=== PATIENT | male | born 1975 | race Caucasian/White ===

== ENCOUNTER 2018-09-14 06:31 | Emergency (ER) | payer SELFPAY ==
[2018-09-14] MEDS ORDERED: ASPIRIN 81 MG TABLET, CHEWABLE PO ONE (06:43)
[2018-09-14] MEDS ORDERED: FAMOTIDINE INJ/PF 20 MG/2 ML SDV IV ONE (07:09)
[2018-09-14] MEDS ORDERED: NORMAL SALINE 1000 ML 1,000 ML IV ONE (07:09)
[2018-09-14] MEDS ORDERED: KETOROLAC TROMETHAMINE INJ/PF 30 MG/1 ML SDV IV ONE (07:09)
[2018-09-14 07:17] LABS: ABSOLUTE LYMPHOCYTES (AUTO) 1.1 10^3/uL (0.5-4.7); ABSOLUTE MONOCYTES (AUTO) 0.3 10^3/uL (0.1-1.4); ABSOLUTE NEUT (AUTO) 4.3 10^3/uL (1.7-8.2); BASOPHILS % (AUTO) 0.5 % (0-2); EOSINOPHILS % (AUTO) 0.2 % (0-6); HEMATOCRIT 42.1 % (37.9-51.0); HEMOGLOBIN 15.1 g/dL (13.5-17.0); LYMPHOCYTES % (AUTO) 18.6 % (13-45); MEAN CORPUSCULAR HEMOGLOBIN 33.8 pg (27.0-33.4); MEAN CORPUSCULAR HGB CONC 35.9 g/dL (32.0-36.0); MEAN CORPUSCULAR VOLUME 94 fl (80-97); MONOCYTES % (AUTO) 5.8 % (3-13); PLATELET COUNT 175 10^3/uL (150-450); RED BLOOD COUNT 4.46 10^6/uL (4.35-5.55); RED CELL DISTRIBUTION WIDTH 13.3 % (11.5-14.0); SEGMENTED NEUTROPHILS % (AUTO) 74.9 % (42-78); TOTAL CELLS COUNTED % (AUTO) 100 %; WHITE BLOOD COUNT 5.8 10^3/uL (4.0-10.5)
--- NOTE | 2018-09-14 07:22 | RADIOLOGY REPORT (SQ) ---
EXAM DESCRIPTION: XR CHEST 1 VIEW COMPLETED DATE/TME: 09/14/2018 06:43 CLINICAL HISTORY: 43 years Male, cp COMPARISON: None. NUMBER OF VIEWS/TECHNIQUE: 1/AP FINDINGS: Increased lung volume, clear parenchyma, normal cardiac silhouette, and intact bony thorax. IMPRESSION: No acute cardiopulmonary findings.
[2018-09-14 07:32] LABS: ALANINE AMINOTRANSFERASE 66 U/L (21-72); ALBUMIN 4.4 g/dL (3.5-5.0); ALKALINE PHOSPHATASE 86 U/L (38-126); ANION GAP 12 (5-19); ASPARTATE AMINO TRANSFERASE 150 U/L (17-59); BILIRUBIN,DIRECT 0.3 mg/dL (0.0-0.4); BILIRUBIN,TOTAL 0.9 mg/dL (0.2-1.3); BLOOD UREA NITROGEN 17 mg/dL (7-20); CALCIUM 10.7 mg/dL (8.4-10.2); CARBON DIOXIDE 26 mmol/L (22-30); CHLORIDE 102 mmol/L (98-107); CREATINE KINASE 79 U/L (55-170); GLUCOSE 109 mg/dL (75-110); POTASSIUM 3.7 mmol/L (3.6-5.0); SODIUM 140.1 mmol/L (137-145); TOTAL PROTEIN 7.6 g/dL (6.3-8.2)
--- NOTE | 2018-09-14 07:39 | ER Document Report ---
Entered by RAFFAELE SEGOVIA SCRIBE 09/14/18 0722 Acting as scribe for:JHONY DOWNEY MD ED General - General Chief Complaint: Chest Pain Stated Complaint: CHEST PAIN Time Seen by Provider: 09/14/18 06:55 Mode of Arrival: Ambulatory Information source: Patient Notes: Patient is a 43 year old male with HTN presents to the emergency department complaining of chest pain, right arm pain and vomiting onset this morning. Patient states he woke up around 0530 this morning with chest pain described as a sharpness across his entire chest. Patient states he proceeded to get out of bed and felt very off balance and "out of it". He states he laid down and proceeded to have right arm pain. He states he then began to have hot flashes and dizziness and stepped outside where he proceeded to vomit. Patient states he currently feels "loopy" and describes his current chest pain as a right sided "tremor". He denies a history of similar symptoms or any current nausea. Patient is currently prescribed HCTZ, metoprolol 50 mg daily. He states he is prescribed lisinopril but has discontinued used due to not liking the way it makes him feel. TRAVEL OUTSIDE OF THE [place] IN LAST 30 DAYS: No - Related Data Allergies/Adverse Reactions: No Known Allergies Allergy (Unverified 12/10/17 07:09) Past Medical History - General Information source: Patient - Social History Smoking Status: Current Every Day Smoker Cigarette use (# per day): Yes - 1 PPD Chew tobacco use (# tins/day): No Smoking Education Provided: No Frequency of alcohol use: Heavy - reports "1 glass a day" Drug Abuse: None Occupation: [employer] Home Lives with: Family Family History: Other - Mother, multiple myeloma Patient has suicidal ideation: No Patient has homicidal ideation: No - Past Medical History Cardiac Medical History: Reports: Hx Hypertension Review of Systems - Review of Systems Constitutional: No symptoms reported EENT: No symptoms reported Cardiovascular: See HPI, Dizziness Respiratory: No symptoms reported Gastrointestinal: See HPI, Nausea, Vomiting Genitourinary: No symptoms reported Male Genitourinary: No symptoms reported Musculoskeletal: See HPI Skin: No symptoms reported Hematologic/Lymphatic: No symptoms reported Neurological/Psychological: No symptoms reported -: Yes All other systems reviewed and negative Physical Exam - Vital signs Vitals: Temp Pulse Resp BP Pulse Ox 98.7 F 104 H 16 151/99 H 95 09/14/18 06:37 09/14/18 06:37 09/14/18 06:37 09/14/18 06:37 09/14/18 06:37 - Notes Notes: GENERAL: Alert, interacts well. No acute distress. HEAD: Normocephalic, atraumatic. No facial asymmetry. EYES: Pupils equal, round, and reactive to light. Extraocular movements intact. ENT: Oral mucosa moist, tongue midline. NECK: Full range of motion. Supple. Trachea midline. LUNGS: Clear to auscultation bilaterally, no wheezes, rales, or rhonchi. No respiratory distress. Bilateral anterior chest wall tenderness to palpation, R>L. HEART: Regular tachycardic with a rate of 105 with occasional PACs with a pause on bedside rn cardiac per my interpretation. ABDOMEN: Soft, non-tender. Non-distended. Bowel sounds present in all 4 quadrants. No guarding, rigidity, or rebound. EXTREMITIES: Moves all 4 extremities spontaneously. No edema, radial and dorsalis pedis pulses 2/4 bilaterally. No cyanosis. Bilateral trapezius and shoulder tenderness to palpation, R>L. NEUROLOGICAL: Alert and oriented x3. Normal speech. Normal motor functions. Normal sensations. PSYCH: Normal affect, normal mood. SKIN: Warm, dry, normal turgor. No rashes or lesions noted. Course - Vital Signs Vital signs: Temp Pulse Resp BP Pulse Ox 98.7 F 104 H 21 H 141/93 H 93 09/14/18 06:37 09/14/18 06:37 09/14/18 08:01 09/14/18 08:01 09/14/18 08:01 - Laboratory Result Diagrams: 09/14/18 06:52 09/14/18 06:52 Laboratory results interpreted by me: 09/14/18 09/14/18 06:52 06:52 MCH 33.8 H Calcium 10.7 H AST 150 H - Diagnostic Test Radiology reviewed: Image reviewed, Reports reviewed - Chest x-ray shows increased lung volume, nothing acute. - EKG Interpretation by Mi EKG shows normal: Sinus rhythm, [place], Intervals, QRS Complexes, ST-T Waves Rate: Tachycardia - 100 Rhythm: APC's When compared to previous EKG there are: Previous EKG unavailable Discharge - Discharge Clinical Impression: Anterior chest wall pain Condition: Stable Disposition: HOME, SELF-CARE Additional Instructions: Chest Wall Pain Your chest pain has been diagnosed as coming from the chest wall. This is often caused by straining the muscles or joints in the chest during physical activity, direct trauma, coughing, or vigorous vomiting. Persons with arthritis are especially prone to this type of pain, due to inflammation of the cartilage joints near the breast bone. Occasionally, no cause can be found. Rest from strenuous physical activity. This kind of chest pain is usually made worse by movement of the chest. If the pain is new, and seems to be due to muscle strain, cold packs can help. Otherwise, apply gentle warmth to the painful area for 15 minutes every hour or two. You should contact the doctor immediately if things change. Further evaluation is needed if you develop a fever or cough, if the nature of the pain changes, or if you become short of breath. Take Tylenol with ibuprofen or Aleve for your chest wall discomfort. Try to rest the involved muscles as much as possible. Follow-up with a local primary care provider if not improving. RETURN TO THE EMERGENCY ROOM IF ANY NEW OR WORSENING SYMPTOMS. Forms: Return to Work Scribe Attestation: 09/14/18 07:40 I personally performed the services described in the documentation, reviewed and edited the documentation which was dictated to the scribe in my presence, and it accurately records my words and actions. I personally performed the services described in the documentation, reviewed and edited the documentation which was dictated to the scribe in my presence, and it accurately records my words and actions.
[2018-09-14 07:45] LABS: CREATINE KINASE MB 0.54 ng/mL (<4.55); TROPONIN I < 0.012 ng/mL
--- NOTE | 2018-09-14 08:17 | EKG REPORT ---
SEVERITY:- OTHERWISE NORMAL ECG - SINUS TACHYCARDIA ATRIAL PREMATURE COMPLEX : Confirmed by: Boston Guajardo MD 14-Sep-2018 08:16:48
[2018-09-14 09:31] VITALS: BP 155/102
== END 2018-09-14 09:30 | disposition home or self-care (01) ==
LOC: ER 06:31
DX: R07.89 Other chest pain (principal); R11.10 Vomiting, unspecified; M79.601 Pain in right arm; F17.210 Nicotine dependence, cigarettes, uncomplicated
CPT/HCPCS: 93005; 99285; 96361; 96374; 36415; 82553; 82550; 85025; 80053; 84484; 71045; 93010; J7030; S0028

== ENCOUNTER 2019-05-24 14:00 | Emergency (ER) | payer OTHER ==
[2019-05-24] MEDS ORDERED: DIPH/PERTUSS(ACELL)/TETANUS VAC/PF 0.5 ML SYR (>=10YO) IM ONE (14:11)
--- NOTE | 2019-05-24 14:15 | ER Document Report ---
ED Medical Screen (RME) - General Chief Complaint: Head Injury Stated Complaint: HEAD INJURY Time Seen by Provider: 05/24/19 14:06 TRAVEL OUTSIDE OF THE [place] IN LAST 30 DAYS: No - HPI Notes: 05/24/19 14:12 Patient is a 44-year-old male who presents complaining of having a moderate to severe headache for the past 3 days with only being able to sleep for 6 hours total throughout this time as well as feeling off balance status post head injury 3 days ago at work. Patient states that he remembers talking on the phone within the work place building and then all of a sudden regaining consciousness with him slamming on the gas pedal while sitting in his truck and being aided by coworkers. Patient states that there was blood running down his head because he hit it open on something. He does not recall any injury, but states that he must of hit his head off of something. Patient did not get evaluated by medical facility at that time. Unknown last tetanus. He otherwise has been able to eat and drink since then, but does have decreased p.o. intake. He is urinating normally and having normal bowel movements. He is able to ambulate. He is not on any blood thinning medications. No CP/SOB or abd pain. I have treated and performed a rapid initial assessment of this patient. A comprehensive ED assessment and evaluation of the patient, analysis of test results and completion of medical decision making process will be conducted by additional ED providers. PHYSICAL EXAMINATION: accompanied by female nurse GENERAL: Well-appearing, well-nourished and in no acute distress. A&Ox4. Answ ers questions appropriately. HEAD: There is a linear healing laceration approx 3.5cm to the rt parietal area. No borden sign EYES: Pupils equal round and reactive to light, extraocular movements intact, sclera anicteric, conjunctiva are normal. No raccoon eyes/entrapment ENT: EAC clear b/l. TM's intact b/l without erythema, fluid, or perforation. Nares patent and without discharge. oropharynx clear without exudates. No tonsilar hypertrophy or erythema. Moist mucous membranes. No sinus tenderness. No hemotympanum/CSF discharge. NECK: Normal range of motion, supple without lymphadenopathy. No rigidity. No midline tenderness. LUNGS: Breath sounds clear to auscultation bilaterally and equal. No wheezes rales or rhonchi. HEART: Regular rate and rhythm without murmurs, rubs, gallops. Musculoskeletal: Ext b/l: FROM to passive/active. Strength 5+/5. No deficits noted. No bony tenderness of extremities. Back: FROM to passive/active. Strength 5+/5. No vertebral point tenderness, stepoffs, or deformities. No other bony tenderness or ecchymosis. SLR negative b/l. Extremities: No cyanosis, clubbing, or edema b/l. Peripheral pulses 2+. Capillary refill less than 2 seconds. NEUROLOGICAL: NIH 0. GCS 15. Cranial nerves grossly intact. Normal speech, normal gait. Normal sensory, motor exams. Reflexes 2+ b/l. PSYCH: Normal mood, normal affect. SKIN: Warm, Dry, normal turgor, no rashes or lesions noted. - Related Data Allergies/Adverse Reactions: narcotics Adverse Reaction (Uncoded 05/24/19 14:07) Past Medical History - Past Medical History Cardiac Medical History: Reports: Hx Hypertension Renal/ Medical History: Denies: Hx Peritoneal Dialysis Physical Exam - Vital signs Vitals: Temp Pulse Resp BP Pulse Ox 99.7 F 98 18 143/84 H 100 05/24/19 14:05 05/24/19 14:05 05/24/19 14:05 05/24/19 14:05 05/24/19 14:05 Course - Vital Signs Vital signs: Temp Pulse Resp BP Pulse Ox 99.7 F 98 18 143/84 H 100 05/24/19 14:05 05/24/19 14:05 05/24/19 14:05 05/24/19 14:05 05/24/19 14:05
--- NOTE | 2019-05-24 14:42 | RADIOLOGY REPORT (SQ) ---
EXAM DESCRIPTION: CT HEAD WITHOUT COMPLETED DATE/TIME: 05/24/2019 2:32 pm REASON FOR STUDY: LOC, rt head injury COMPARISON: None. TECHNIQUE: Axial images acquired through the brain without intravenous contrast. Images reviewed wi th bone, brain and subdural windows. Additional sagittal and coronal reconstructions were generated. Images stored on PACS. All CT scanners at this facility use dose modulation, iterative reconstruction, and/or weight based d osing when appropriate to reduce radiation dose to as low as reasonably achievable (ALARA). [facility]: Dose Right [facility]: CareDose [facility]: Dose Right [facility]: Teradose 4D [facility]: [email or web address] RADIATION DOSE: CT Rad equipment meets quality standard of care and radiation dose reduction techniq ues were employed. CTDIvol: 53.2 mGy. DLP: 1070 mGy-cm. mGy. LIMITATIONS: None. FINDINGS: VENTRICLES: Normal size and contour. CEREBRUM: No masses. No hemorrhage. No midline shift. No evidence for acute infarction. Normal gra y/white matter differentiation. No areas of low density in the white matter. CEREBELLUM: No masses. No hemorrhage. No alteration of density. No evidence for acute infarction. EXTRAAXIAL SPACES: No fluid collections. No masses. ORBITS AND GLOBE: No intra- or extraconal masses. Normal contour of globe without masses. CALVARIUM: No fracture. PARANASAL SINUSES: No fluid or mucosal thickening. SOFT TISSUES: No mass or hematoma. OTHER: No other significant finding. IMPRESSION: NORMAL BRAIN CT WITHOUT CONTRAST. EVIDENCE OF ACUTE STROKE: NO. COMMENT: Quality ID # [id number]: Final reports with documentation of one or more dose reduction techniques (e.g., Automated exposure control, adjustment of the mA and/or kV according to patient size, use of iterative reconstruction technique) TECHNICAL DOCUMENTATION: JOB ID: [id number] 2010 [employer]- All Rights Reserved Reading location - IP/workstation name: [email or web address]
[2019-05-24 15:05] LABS: ABSOLUTE LYMPHOCYTES (AUTO) 0.7 10^3/uL (0.5-4.7); ABSOLUTE MONOCYTES (AUTO) 0.5 10^3/uL (0.1-1.4); TOTAL CELLS COUNTED % (AUTO) 100 %; WHITE BLOOD COUNT 4.2 10^3/uL (4.0-10.5)
[2019-05-24 15:08] LABS: APPEARANCE,URINE CLEAR; BILIRUBIN,URINE NEGATIVE (NEGATIVE); COLOR,URINE YELLOW; GLUCOSE, URINE NEGATIVE (NEGATIVE); KETONES,URINE NEGATIVE (NEGATIVE); PROTEIN,URINE NEGATIVE (NEGATIVE); URINE SPECIFIC GRAVITY 1.019
[2019-05-24 15:14] LABS: INTERNATIONAL RATION (INR) 0.92; PROTHROMBIN TIME 12.3 SEC (11.4-15.4)
[2019-05-24 15:15] LABS: PARTIAL THROMBOPLASTIN TIME 29.1 SEC (23.5-35.8)
[2019-05-24 15:20] LABS: BASOPHILS % (AUTO) 0.3 % (0-2); EOSINOPHILS % (AUTO) 0.6 % (0-6); HEMATOCRIT 40.4 % (37.9-51.0); HEMOGLOBIN 14.3 g/dL (13.5-17.0); LYMPHOCYTES % (AUTO) 16.3 % (13-45); MEAN CORPUSCULAR HEMOGLOBIN 34.3 pg (27.0-33.4); MEAN CORPUSCULAR HGB CONC 35.4 g/dL (32.0-36.0); MEAN CORPUSCULAR VOLUME 97 fl (80-97); MONOCYTES % (AUTO) 11.1 % (3-13); PLATELET COUNT 113 10^3/uL (150-450); RED BLOOD COUNT 4.17 10^6/uL (4.35-5.55); RED CELL DISTRIBUTION WIDTH 14.5 % (11.5-14.0); SEGMENTED NEUTROPHILS % (AUTO) 71.7 % (42-78)
[2019-05-24 15:20] LABS: URINE AMPHETAMINES SCREEN NEGATIVE; URINE BARBITURATES SCREEN NEGATIVE; URINE BENZODIAZEPINES SCREEN NEGATIVE; URINE COCAINE SCREEN NEGATIVE; URINE MARIJUANA (THC) SCREEN NEGATIVE; URINE METHADONE SCREEN NEGATIVE; URINE PHENCYCLIDINE SCREEN NEGATIVE
[2019-05-24 15:25] LABS: ALBUMIN 4.1 g/dL (3.5-5.0); ALKALINE PHOSPHATASE 52 U/L (38-126); ANION GAP 8 (5-19); ASPARTATE AMINO TRANSFERASE 77 U/L (17-59); BILIRUBIN,TOTAL 0.6 mg/dL (0.2-1.3); BLOOD UREA NITROGEN 9 mg/dL (7-20); CALCIUM 9.6 mg/dL (8.4-10.2); CARBON DIOXIDE 30 mmol/L (22-30); CHLORIDE 101 mmol/L (98-107); GLUCOSE 88 mg/dL (75-110); POTASSIUM 3.6 mmol/L (3.6-5.0); TOTAL PROTEIN 6.9 g/dL (6.3-8.2)
[2019-05-24] MEDS ORDERED: LORAZEPAM INJ 2 MG/1 ML VIAL IV ONE (16:34)
--- NOTE | 2019-05-24 16:37 | RADIOLOGY REPORT (SQ) ---
EXAM DESCRIPTION: CT CERVICAL SPINE WITHOUT COMPLETED DATE/TIME: 05/24/2019 4:15 pm REASON FOR STUDY: trauma COMPARISON: None. TECHNIQUE: Axial images acquired through the cervical spine without intravenous contrast. Images re viewed with lung, soft tissue and bone windows. Reconstructed coronal and sagittal MPR images review ed. Images stored on PACS. All CT scanners at this facility use dose modulation, iterative reconstruction, and/or weight based d osing when appropriate to reduce radiation dose to as low as reasonably achievable (ALARA). [facility]: Dose Right [facility]: CareDose [facility]: Dose Right [facility]: Teradose 4D [facility]: [employer] RADIATION DOSE: CT Rad equipment meets quality standard of care and radiation dose reduction techniq ues were employed. CTDIvol: 16.3 mGy. DLP: 354 mGy-cm. mGy. LIMITATIONS: Motion artifact. FINDINGS: ALIGNMENT: Anatomic. MINERALIZATION: Normal. VERTEBRAL BODIES: No fractures or dislocation. DISCS: Multilevel disc space narrowing with osteophytes. FACETS, LATERAL MASSES, POSTERIOR ELEMENTS: Facet arthropathy. No fractures. No dislocation. No ac lower brule findings. HARDWARE: None in the spine. VISUALIZED RIBS: No fractures. LUNG APICES AND SOFT TISSUES: No significant or acute findings. OTHER: No other significant finding. IMPRESSION: CHRONIC DEGENERATIVE CHANGES. NO ACUTE FINDINGS. TECHNICAL DOCUMENTATION: JOB ID: [id number] Quality ID # [id number]: Final reports with documentation of one or more dose reduction techniques (e.g., Au tomated exposure control, adjustment of the mA and/or kV according to patient size, use of iterative reconstruction technique) 2010 [employer]- All Rights Reserved Reading location - IP/workstation name: [email or web address]
--- NOTE | 2019-05-24 17:58 | ER Document Report ---
Entered by KATIE WHITT SCRIBE 05/24/19 1532 Acting as scribe for:LIZA GONZALEZ DO ED Head/Face/Scalp Injury - General Chief Complaint: Head Injury Stated Complaint: HEAD INJURY Time Seen by Provider: 05/24/19 14:06 Information source: Patient Notes: This 44-year-old male patient presents to the emergency department today with complaints of a presumed fall that occurred x3 days ago. Patient states that he remembers leaving work and the next thing he remembers is being woken up asleep in his truck. Patient states the truck was running and he had a large amount of blood coming from his head. Patient states he assumes he fell but again he does not remember a fall and it was not witnessed by anyone. Patient states he has had continued dizziness, nausea, and a headache since the fall. Patient has not been seen since the fall. TRAVEL OUTSIDE OF THE [place] IN LAST 30 DAYS: No - Related Data Allergies/Adverse Reactions: narcotics Adverse Reaction (Uncoded 05/24/19 14:07) Past Medical History - General Information source: Patient - Social History Smoking Status: Current Every Day Smoker Cigarette use (# per day): Yes Chew tobacco use (# tins/day): No Frequency of alcohol use: None Drug Abuse: None Occupation: [employer] Family History: Reviewed & Not Pertinent, Other - Mother, multiple myeloma Patient has suicidal ideation: No Patient has homicidal ideation: No - Past Medical History Cardiac Medical History: Reports: Hx Hypertension Renal/ Medical History: Denies: Hx Peritoneal Dialysis Review of Systems - Review of Systems Constitutional: See HPI, Other - fall EENT: No symptoms reported Cardiovascular: See HPI, Dizziness Respiratory: No symptoms reported Gastrointestinal: See HPI, Nausea. denies: Vomiting Genitourinary: No symptoms reported Male Genitourinary: No symptoms reported Musculoskeletal: No symptoms reported Skin: No symptoms reported Hematologic/Lymphatic: No symptoms reported Neurological/Psychological: See HPI, Headaches -: Yes All other systems reviewed and negative Physical Exam - Vital signs Vitals: Temp Pulse Resp BP Pulse Ox 99.7 F 98 18 143/84 H 100 05/24/19 14:05 05/24/19 14:05 05/24/19 14:05 05/24/19 14:05 05/24/19 14:05 - Notes Notes: Physical Exam: General: Alert, appears well. HEENT: Normocephalic. PERRL. Extraocular movements intact. Oropharynx clear. 3 inch healing laceration over the right parietal area without sign of infection. No active bleeding. Neck: Supple. Non-tender. Respiratory: No respiratory distress. Clear and equal breath sounds bilaterally. Cardiovascular: Regular rate and rhythm. Abdominal: Normal Inspection. Non-tender. No distension. Normal Bowel Sounds. Back: No gross abnormalities. Extremities: Moves all four extremities. Upper extremities: Normal inspection. Normal ROM. Lower extremities: Normal inspection. No edema. Normal ROM. Neurological: Normal cognition. AAOx4. Normal speech. Psychological: Normal affect. Normal Mood. Skin: Warm. Dry. Normal color. Course - Re-evaluation Re-evalutation: 05/24/19 18:00 MDM 44 year old with complaints of headache and amnesia to events of the other day - Sunday 05/21 - when he apparently fell and ended up with a right sided scalp laceration. He has been dizzy since and had some headaches and nausea. Persistent headaches and nausea have led him to want to be evaluated here today. 05/24/19 18:04 I have discussed with Dr. Hooper at [facility] and he has graciously accepted the pt as a trauma transfer. We are awaiting transfer. The pt is stable in normal at this time. 05/24/19 20:05 Pt seen at this time as transport is here and assessing him and he is stable for transport. - Vital Signs Vital signs: Temp Pulse Resp BP Pulse Ox 99.7 F 98 20 148/98 H 98 05/24/19 14:05 05/24/19 14:05 05/24/19 19:01 05/24/19 19:00 05/24/19 19:01 - Laboratory Result Diagrams: 05/24/19 14:35 05/24/19 14:35 Laboratory results interpreted by me: 05/24/19 05/24/19 05/24/19 14:30 14:35 14:35 RBC 4.17 L MCH 34.3 H RDW 14.5 H Plt Count 113 L AST 77 H Urine Blood SMALL H Urine Urobilinogen 2.0 H Acetaminophen 05/24/19 14:35 RBC MCH RDW Plt Count AST Urine Blood Urine Urobilinogen Acetaminophen < 10 L - Diagnostic Test Radiology reviewed: Image reviewed, Reports reviewed - EKG Interpretation by Me EKG shows normal: Sinus rhythm Rate: Normal Rhythm: NSR - NSR Nl [place] [address] eleavtion or depression my interpretation. Critical Care Note - Critical Care Note Total time excluding time spent on procedures (mins): 30 Discharge - Discharge Clinical Impression: SDH (subdural hematoma) Scalp laceration Qualifiers: Encounter type: initial encounter Qualified Code(s): S01.01XA - Laceration without foreign body of scalp, initial encounter Condition: Fair Disposition: [facility] I personally performed the services described in the documentation, reviewed and edited the documentation which was dictated to the scribe in my presence, and it accurately records my words and actions.
[2019-05-24 20:20] VITALS: BP 157/102
--- NOTE | 2019-05-24 21:21 | EKG REPORT ---
SEVERITY:- NORMAL ECG - SINUS RHYTHM : Confirmed by: Sherry Metcalf 24-May-2019 21:20:19
== END 2019-05-24 20:20 | disposition short-term general hospital (02) ==
LOC: ER 14:00
DX: S06.5X0A Traumatic subdural hemorrhage without loss of consciousness, initial encounter (principal); S01.01XA Laceration without foreign body of scalp, initial encounter; R42 Dizziness and giddiness; R11.0 Nausea; R51 Headache; X58.XXXA Exposure to other specified factors, initial encounter; Z88.8 Allergy status to other drugs, medicaments and biological substances; F17.210 Nicotine dependence, cigarettes, uncomplicated; I10 Essential (primary) hypertension
CPT/HCPCS: 93005; 99291; 90471; 96374; 36415; 80307 ×2; 85025; 85610; 85730; 80053; 81001; 70450; 72125; 90715; 93010; J2060

== ENCOUNTER 2019-05-27 14:45 | Emergency (ER) | payer SELFPAY ==
[2019-05-27 15:09] VITALS: BP 142/86
--- NOTE | 2019-05-27 15:30 | ER Document Report ---
ED Medical Screen (RME) - General Chief Complaint: Head Injury Stated Complaint: HEAD PAIN,NAUSEA Time Seen by Provider: 05/27/19 15:23 Mode of Arrival: Ambulatory Information source: Patient Notes: Patient states that he was seen in the emergency department 3 days ago and diagnosed with a skull fracture and was transferred to [facility]. Patient states that his headache started to worsen yesterday which prompted his visit here today. Patient states that his ears feel like they are popping and he has nausea. Patient reports feeling lightheaded and dizzy. I have greeted and performed a rapid initial assessment of this patient. A comprehensive ED assessment and evaluation of the patient, analysis of test results and completion of the medical decision making process will be conducted by additional ED providers. TRAVEL OUTSIDE OF THE [place] IN LAST 30 DAYS: No - Related Data Allergies/Adverse Reactions: narcotics Adverse Reaction (Uncoded 05/24/19 14:07) Past Medical History - Past Medical History Cardiac Medical History: Reports: Hx Hypertension Renal/ Medical History: Denies: Hx Peritoneal Dialysis Physical Exam - Vital signs Vitals: Temp Pulse Resp BP Pulse Ox 98.8 F 75 18 142/86 H 98 05/27/19 15:07 05/27/19 15:07 05/27/19 15:07 05/27/19 15:07 05/27/19 15:07 - Neurological Neuro grossly intact: Yes Cognition: Normal Paresh Coma Scale Eye Opening: Spontaneous [place] Coma Scale Verbal: Oriented [place] Coma Scale Motor: Obeys Commands [place]le Coma Scale Total: 15 Course - Vital Signs Vital signs: Temp Pulse Resp BP Pulse Ox 98.8 F 75 18 142/86 H 98 05/27/19 15:07 05/27/19 15:07 05/27/19 15:07 05/27/19 15:07 05/27/19 15:07
--- NOTE | 2019-05-27 16:06 | RADIOLOGY REPORT (SQ) ---
EXAM DESCRIPTION: CT HEAD WITHOUT COMPLETED DATE/TIME: 05/27/2019 3:50 pm REASON FOR STUDY: CM, hx fracture COMPARISON: 05/24/2019 TECHNIQUE: Axial images acquired through the brain without intravenous contrast. Images reviewed wi th bone, brain and subdural windows. Additional sagittal and coronal reconstructions were generated. Images stored on PACS. All CT scanners at this facility use dose modulation, iterative reconstruction, and/or weight based d osing when appropriate to reduce radiation dose to as low as reasonably achievable (ALARA). [facility]: Dose Right [facility]: CareDose [facility]: Dose Right [facility]: Teradose 4D [facility]: [employer] RADIATION DOSE: CT Rad equipment meets quality standard of care and radiation dose reduction techniq ues were employed. CTDIvol: 53.2 mGy. DLP: 991 mGy-cm. mGy. LIMITATIONS: None. FINDINGS: VENTRICLES: Normal size and contour. CEREBRUM: No masses. No hemorrhage. No midline shift. No evidence for acute infarction. Normal gra y/white matter differentiation. No areas of low density in the white matter. CEREBELLUM: No masses. No hemorrhage. No alteration of density. No evidence for acute infarction. EXTRAAXIAL SPACES: There is a very minimal area of subdural hematoma along the right parietal lobe. No mass effect. No midline shift. ORBITS AND GLOBE: No intra- or extraconal masses. Normal contour of globe without masses. CALVARIUM: No fracture. PARANASAL SINUSES: No fluid or mucosal thickening. SOFT TISSUES: No mass or hematoma. OTHER: No other significant finding. IMPRESSION: Very minimal subdural hematoma along the right parietal lobe. No mass effect. EVIDENCE OF ACUTE STROKE: NO. COMMENT: Pertinent findings on the imaging study reported as a CRITICAL RESULT to JONAH SANTANA NP at15:58 on 05/27/2019. Category of Critical Result: Intracranial hemorrhage Quality ID # [id number]: Final reports with documentation of one or more dose reduction techniques (e.g., Au tomated exposure control, adjustment of the mA and/or kV according to patient size, use of iterative reconstruction technique) TECHNICAL DOCUMENTATION: JOB ID: [id number] 2010 [employer]- All Rights Reserved Reading location - IP/workstation name: [email or web address]
[2019-05-27] MEDS ORDERED: ONDANSETRON HCL INJ/PF 4 MG/2 ML SDV IV ONE (16:24)
[2019-05-27] MEDS ORDERED: ACETAMINOPHEN 325 MG TABLET PO ONE (16:25)
--- NOTE | 2019-05-27 16:29 | ER Document Report ---
ED Headache - General Chief Complaint: Headache Stated Complaint: HEAD PAIN,NAUSEA Time Seen by Provider: 05/27/19 15:23 Mode of Arrival: Ambulatory Information source: Patient Notes: This 44-year-old man presents to the emergency department with a history of a head injury on , he was seen by the neurosurgeon at [facility], noted to have a small subdural hematoma. He was discharged from the hospital given Fioricet, K. Dur, and instructed to use Tylenol for pain along with the Fioricet. He presents to the emergency department today complaining of the headache, he also notes that he feels a little off balance. He denies any new injuries or falls. He is scheduled to see the neurosurgeon on , June 07, 2019 TRAVEL OUTSIDE OF THE [place] IN LAST 30 DAYS: No - Related Data Allergies/Adverse Reactions: narcotics Adverse Reaction (Uncoded 05/24/19 14:07) Home Medications: potassium, Past Medical History - General Information source: Patient - Social History Smoking Status: Current Every Day Smoker Chew tobacco use (# tins/day): No Frequency of alcohol use: None Drug Abuse: None Family History: Reviewed & Not Pertinent, Other - Mother, multiple myeloma Patient has suicidal ideation: No Patient has homicidal ideation: No - Past Medical History Cardiac Medical History: Reports: Hx Hypertension Renal/ Medical History: Denies: Hx Peritoneal Dialysis Review of Systems - Review of Systems Notes: Constitutional: Negative for fever. HENT: Negative for sore throat. Eyes: Negative for visual changes. Cardiovascular: Negative for chest pain. Respiratory: Negative for shortness of breath. Gastrointestinal: Negative for abdominal pain, vomiting or diarrhea. Genitourinary: Negative for dysuria. Musculoskeletal: Negative for back pain. Skin: Negative for rash. Neurological: + Headaches, no weakness or numbness. 10 point ROS negative except as marked above and in HPI. Physical Exam - Vital signs Vitals: Temp Pulse Resp BP Pulse Ox 98.8 F 75 18 142/86 H 98 05/27/19 15:07 05/27/19 15:07 05/27/19 15:07 05/27/19 15:07 05/27/19 15:07 - Notes Notes: PHYSICAL EXAMINATION: Physical Exam: General: Well-nourished well-developed 44-year-old man in no acute distress HEENT: NC/AT, pupils equal round and reactive to light, MM moist,nares clear, oropharynx clear, airway patent Neck: supple, no adenopathy, no masses. Good range of motion Lungs: clear, no wheezing, no rales no rhonchi CVS: Regular rate and rhythm no murmur gallop or rub Abdomen: Soft, active, nontender, no masses, no hepatosplenomegaly Ext: No edema, clubbing or cyanosis. Neuro: Alert and responsive, moving all 4 extremities on command, cranial nerves intact, no focal findings Skin: Intact no open lesions, no rash PSYCH: Normal mood, normal affect. Course - Re-evaluation Re-evalutation: 05/27/19 18:23 Patient was given Zofran for nausea and Tylenol for headache. He is resting qu ietly at this time. I have asked him that he should keep the appointment with the neurosurgeon as scheduled. If he develops new neurologic symptoms, he should call the neurosurgery clinic as per instructed on the discharge summary from [facility]. - Vital Signs Vital signs: Temp Pulse Resp BP Pulse Ox 98.8 F 75 18 142/86 H 98 05/27/19 15:07 05/27/19 15:07 05/27/19 15:07 05/27/19 15:07 05/27/19 15:07 Discharge - Discharge Clinical Impression: Chronic subdural hematoma Condition: Good Disposition: HOME, SELF-CARE Instructions: Antinausea Medication ([facility]) Additional Instructions: You were seen in the emergency department today for follow-up of her subdural hematoma, headache. The repeat CT scan does not reveal a significant change in the area of subdural hematoma. Please use the Zofran for nausea and continue to use Tylenol for headache. Please follow-up with the neurosurgeon on June 06 at 10:30 AM as per your discharge summary from [facility]. If you feel that you need to be seen sooner please call the number that is listed on your discharge paperwork. If you develop new neurologic symptoms or have other concerns do not hesitate to go back to [facility] or you may come to the emergency department for reevaluation. Prescriptions: Ondansetron [Zofran Odt 4 mg Tablet] 1 - 2 tab PO Q4H PRN #15 tab.rapdis PRN Reason: For Nausea/Vomiting
== END 2019-05-27 18:58 | disposition home or self-care (01) ==
LOC: ER 14:45
DX: I62.03 Nontraumatic chronic subdural hemorrhage (principal); R51 Headache; R11.0 Nausea; R42 Dizziness and giddiness; F17.200 Nicotine dependence, unspecified, uncomplicated
CPT/HCPCS: 99284; 96374; 70450; J2405

== ENCOUNTER 2019-09-04 14:40 | Emergency (ER) | payer SELFPAY ==
--- NOTE | 2019-09-04 15:05 | ER Document Report ---
ED Medical Screen (RME) - General Chief Complaint: Probable Seizure Stated Complaint: POSSIBLE SEIZURE Time Seen by Provider: 09/04/19 14:56 Mode of Arrival: Wheelchair Notes: HPI; 44-year-old male past medical history significant for seizure disorder and hypertension presents the emergency room stating "I think I am going to have a seizure". Patient states he was driving from [place] to home when he started having tremors in his vehicle. Patient states that he gets tremors prior to having a seizure. States he had a head injury approximately 1 year ago and has been having seizures for the past 6 months states he does not know what seizure medication he supposed to be taking but that he cannot afford it and asked why he is not taking any medications at this time. States he drinks daily. Denies drinking today. PE: Alert and oriented x3, mild distress noted. PEERLA, EOMI lungs: Clear to auscultation without rales rhonchi or wheezes. Heart: Regular rate and rhythm without murmurs, rubs, gallops. I have greeted and performed a rapid initial assessment of this patient. A comprehensive ED assessment and evaluation of the patient, analysis of test results and completion of the medical decision making process will be conducted by additional ED providers. I have specifically instructed the patient or family members with the patient to immediately return to any nursing staff should anything change in the patient's condition or with their chief complaint. TRAVEL OUTSIDE OF THE [place] IN LAST 30 DAYS: No - Related Data Allergies/Adverse Reactions: narcotics Adverse Reaction (Uncoded 05/24/19 14:07) Past Medical History - Past Medical History Cardiac Medical History: Reports: Hx Hypertension Renal/ Medical History: Denies: Hx Peritoneal Dialysis Physical Exam - Vital signs Vitals: Temp Pulse Resp BP Pulse Ox 98.7 F 105 H 18 130/89 H 96 09/04/19 14:46 09/04/19 14:46 09/04/19 14:46 09/04/19 14:46 09/04/19 14:46 Course - Vital Signs Vital signs: Temp Pulse Resp BP Pulse Ox 98.7 F 105 H 18 130/89 H 96 09/04/19 14:46 09/04/19 14:46 09/04/19 14:46 09/04/19 14:46 09/04/19 14:46
--- NOTE | 2019-09-04 15:34 | ER Document Report ---
ED General - General Chief Complaint: Probable Seizure Stated Complaint: POSSIBLE SEIZURE Time Seen by Provider: 09/04/19 14:56 Mode of Arrival: Wheelchair TRAVEL OUTSIDE OF THE [place] IN LAST 30 DAYS: No - HPI Notes: Patient is a 44-year-old male with a history of a seizure disorder, not on medication, and chronic subdural hemorrhage who presents to the emergency department for evaluation. He states that driving today, home from work, he started getting tremors, "felt like he was going to have a seizure." He states his last seizure was 2 weeks ago. He states 2 months prior to that he called EMS to his mother's house, where he is currently staying, re-had a seizure. He is currently not on medications for seizures, he states he cannot afford it. He does not have health insurance. He denies any pain at this time, states he just feels like he is going to have a seizure. - Related Data Allergies/Adverse Reactions: narcotics Adverse Reaction (Uncoded 05/24/19 14:07) Home Medications: Tylenol Past Medical History - General Information source: Patient - Social History Smoking Status: Current Every Day Smoker Frequency of alcohol use: daily -2 or 3 liquor drinks Drug Abuse: None Family History: Reviewed & Not Pertinent, Other - Mother, multiple myeloma Patient has homicidal ideation: No - Past Medical History Cardiac Medical History: Reports: Hx Hypertension Neurological Medical History: Reports: Hx Seizures, Other - Subdural hemorrhage Renal/ Medical History: Denies: Hx Peritoneal Dialysis Review of Systems - Review of Systems Constitutional: See HPI Neurological/Psychological: See HPI -: Yes All other systems reviewed and negative Physical Exam - Vital signs Vitals: Temp Pulse Resp BP Pulse Ox 98.7 F 105 H 18 130/89 H 96 09/04/19 14:46 09/04/19 14:46 09/04/19 14:46 09/04/19 14:46 09/04/19 14:46 - Notes Notes: Vital signs reviewed, please refer to chart. Head is normocephalic, atraumatic. Pupils equal round, reactive to light. Neck is supple without meningismus. Heart is regular rate and rhythm. Lungs are clear to auscultation bilaterally. Abdomen is soft, nontender, normoactive bowel sounds throughout. Extremities without cyanosis, clubbing. Posterior calves are nontender. Patient has a knee brace on, elastic, that appears to be several sizes too small. He has 2+ pitting edema to the entire lower extremity below the knee brace. Peripheral pulses are equal. Skin is warm and dry. Patient is awake, alert, oriented x3. Cranial nerves II - XII are grossly intact without focal neurological deficits. Strength is plus 5 out of 5 bilateral upper and lower extremities. Sensation is intact. Reflexes symmetrical. Intact [id number], rapid alternating movements, [id number]. Course - Re-evaluation Re-evalutation: 09/04/19 15:32 Patient presents to the emergency department for evaluation. He is concerned he might have a seizure. I talked to him at length about how dangerous it is to be noncompliant with seizure medications, and particularly how it is dangerous to himself as well as others to drive with uncontrolled seizures. He explains simply "I need to pay my bills." Laboratory investigations and imaging ordered, specifically given his history of subdural hemorrhage, I am concerned that with multiple seizures he could have bled more. Seizure precautions were enacted. Patient is stable at this time, we will continue to monitor. 09/04/19 16:40 I was notified by the lab that the patient's blood alcohol was over 300. I was then notified by MIC Zacarias that the patient wanted to leave AGAINST MEDICAL ADVICE. I went into evaluate the patient. He states simply "hospitals make me very anxious." I asked him about the blood alcohol. He stated to me that he "partied very hard last night." I explained to the patient that a blood alcohol level it is 4:00 in the afternoon of over 300 would indicate that he had drank much more recently than that. I explained to him I was not saying this in judgment, but offering any sort of help. The patient declined. He still stated he wanted to leave AGAINST MEDICAL ADVICE. I explained to him that I did not feel comfortable discharging him to drive in his own car given his blood alcohol level, as well as my concerns about possible seizure. He stated that he would have a friend come and pick him up. I agreed to let the patient be discharged after his friend arrived. I walked out of the room. Shortly afterwards, the patient used the doorway to the supply hallway, then absconded from the department. 09/04/19 16:46 Please note he did not have his venous Doppler performed. - Vital Signs Vital signs: Temp Pulse Resp BP Pulse Ox 98.7 F 105 H 20 129/89 H 96 09/04/19 14:56 09/04/19 14:46 09/04/19 15:31 09/04/19 15:31 09/04/19 15:31 - Laboratory Result Diagrams: 09/04/19 15:30 09/04/19 15:30 Laboratory results interpreted by me: 09/04/19 09/04/19 09/04/19 15:30 15:30 15:30 WBC 3.8 L RBC 4.33 L MCV 101 H MCH 35.1 H Glucose 115 H AST 73 H ALT 62 H Urine Urobilinogen 2.0 H Urine Ascorbic Acid 20 H Salicylates < 1.0 L Acetaminophen < 10 L Serum Alcohol 317 H* - Diagnostic Test Radiology reviewed: Reports reviewed Radiology results interpreted by me: 09/04/19 16:[address] 09/04/19 15:30 IMPRESSION: NO ACUTE INTRACRANIAL IMAGING FINDINGS. EVIDENCE OF ACUTE STROKE: NO. - EKG Interpretation by Me Additional EKG results interpreted by me: 09/04/19 15:35 Sinus mechanism with a rate of 91 bpm. Normal axis and intervals. No acute ST changes concerning for ischemia or infarction. Discharge - Discharge Clinical Impression: Noncompliance with medication regimen, Seizure disorder, Leg edema, right Alcohol intoxication Qualifiers: Complication of substance-induced condition: uncomplicated Qualified Code(s): F10.920 - Alcohol use, unspecified with intoxication, uncomplicated Disposition: AGAINST MEDICAL ADVICE
[2019-09-04 15:45] LABS: ABSOLUTE LYMPHOCYTES (AUTO) 1.1 10^3/uL (0.5-4.7); ABSOLUTE MONOCYTES (AUTO) 0.3 10^3/uL (0.1-1.4); ABSOLUTE NEUT (AUTO) 2.3 10^3/uL (1.7-8.2); BASOPHILS % (AUTO) 0.6 % (0-2); EOSINOPHILS % (AUTO) 0.8 % (0-6); HEMATOCRIT 43.6 % (37.9-51.0); HEMOGLOBIN 15.2 g/dL (13.5-17.0); LYMPHOCYTES % (AUTO) 28.9 % (13-45); MEAN CORPUSCULAR HEMOGLOBIN 35.1 pg (27.0-33.4); MEAN CORPUSCULAR HGB CONC 34.9 g/dL (32.0-36.0); MEAN CORPUSCULAR VOLUME 101 fl (80-97); MONOCYTES % (AUTO) 9.2 % (3-13); PLATELET COUNT 160 10^3/uL (150-450); RED BLOOD COUNT 4.33 10^6/uL (4.35-5.55); RED CELL DISTRIBUTION WIDTH 13.2 % (11.5-14.0); SEGMENTED NEUTROPHILS % (AUTO) 60.5 % (42-78); TOTAL CELLS COUNTED % (AUTO) 100 %; WHITE BLOOD COUNT 3.8 10^3/uL (4.0-10.5)
[2019-09-04 15:57] VITALS: BP 129/89
[2019-09-04 15:58] LABS: APPEARANCE,URINE CLEAR; BILIRUBIN,URINE NEGATIVE (NEGATIVE); COLOR,URINE YELLOW; GLUCOSE, URINE NEGATIVE (NEGATIVE); KETONES,URINE NEGATIVE (NEGATIVE); LEUKOCYTE ESTERASE,URINE NEGATIVE (NEGATIVE); NITRITE,URINE NEGATIVE (NEGATIVE); PROTEIN,URINE NEGATIVE (NEGATIVE); URINE SPECIFIC GRAVITY 1.015
[2019-09-04 16:02] LABS: BLOOD UREA NITROGEN 8 mg/dL (7-20); CALCIUM 9.3 mg/dL (8.4-10.2); CARBON DIOXIDE 28 mmol/L (22-30); CHLORIDE 107 mmol/L (98-107); GLUCOSE 115 mg/dL (75-110); POTASSIUM 4.1 mmol/L (3.6-5.0)
[2019-09-04 16:03] LABS: ALBUMIN 4.3 g/dL (3.5-5.0); ALKALINE PHOSPHATASE 65 U/L (38-126); ANION GAP 8 (5-19); ASPARTATE AMINO TRANSFERASE 73 U/L (17-59); BILIRUBIN,TOTAL 0.3 mg/dL (0.2-1.3); TOTAL PROTEIN 7.4 g/dL (6.3-8.2)
[2019-09-04 16:11] LABS: URINE AMPHETAMINES SCREEN NEGATIVE; URINE BARBITURATES SCREEN NEGATIVE; URINE BENZODIAZEPINES SCREEN NEGATIVE; URINE COCAINE SCREEN NEGATIVE; URINE MARIJUANA (THC) SCREEN NEGATIVE; URINE METHADONE SCREEN NEGATIVE; URINE PHENCYCLIDINE SCREEN NEGATIVE
--- NOTE | 2019-09-04 16:13 | RADIOLOGY REPORT (SQ) ---
EXAM DESCRIPTION: CT HEAD WITHOUT IMAGES COMPLETED DATE/TIME: 09/04/2019 3:56 pm REASON FOR STUDY: h/o of SDH COMPARISON: 05/24/2019 TECHNIQUE: Axial images acquired through the brain without intravenous contrast. Images reviewed wi th bone, brain and subdural windows. Additional sagittal and coronal reconstructions were generated. Images stored on PACS. All CT scanners at this facility use dose modulation, iterative reconstruction, and/or weight based d osing when appropriate to reduce radiation dose to as low as reasonably achievable (ALARA). [facility]: Dose Right [facility]: CareDose [facility]: Dose Right [facility]: Teradose 4D [facility]: Smart ContentRealtime RADIATION DOSE: CT Rad equipment meets quality standard of care and radiation dose reduction techniq ues were employed. CTDIvol: 53.2 mGy. DLP: 1097 mGy-cm. mGy. LIMITATIONS: None. FINDINGS: VENTRICLES: Normal size and contour. CEREBRUM: No masses. No hemorrhage. No midline shift. No evidence for acute infarction. Normal gra y/white matter differentiation. No areas of low density in the white matter. CEREBELLUM: No masses. No hemorrhage. No alteration of density. No evidence for acute infarction. EXTRAAXIAL SPACES: No fluid collections. No masses. Resolution of previously seen right-sided subdu ral hematoma. ORBITS AND GLOBE: No intra- or extraconal masses. Normal contour of globe without masses. CALVARIUM: No fracture. PARANASAL SINUSES: No fluid or mucosal thickening. SOFT TISSUES: No mass or hematoma. OTHER: No other significant finding. IMPRESSION: NO ACUTE INTRACRANIAL IMAGING FINDINGS. EVIDENCE OF ACUTE STROKE: NO. COMMENT: Quality ID # [id number]: Final reports with documentation of one or more dose reduction techniques (e.g., Automated exposure control, adjustment of the mA and/or kV according to patient size, use of iterative reconstruction technique) TECHNICAL DOCUMENTATION: JOB ID: [id number] 2010 [employer]- All Rights Reserved Reading location - IP/workstation name: [email or web address]
[2019-09-04 16:24] LABS: ACETAMINOPHEN < 10 ug/mL (10-30); SALICYLATE < 1.0 mg/dL (2.0-20.0)
[2019-09-04 16:25] LABS: ALCOHOL 317 mg/dL (NONE DETECTED)
--- NOTE | 2019-09-04 19:42 | EKG REPORT ---
SEVERITY:- NORMAL ECG - SINUS RHYTHM : Confirmed by: Sherry Metcalf 04-Sep-2019 19:42:07
== END 2019-09-04 16:45 | disposition left against medical advice (07) ==
LOC: ER 14:40
DX: R60.9 Edema, unspecified (principal); G40.909 Epilepsy, unspecified, not intractable, without status epilepticus; F10.920 Alcohol use, unspecified with intoxication, uncomplicated; Y90.8 Blood alcohol level of 240 mg/100 ml or more; F17.200 Nicotine dependence, unspecified, uncomplicated; Z91.14 Patient's other noncompliance with medication regimen
CPT/HCPCS: 36415; 70450; 80053; 80307; 81001; 85025; 93005; 93010; 99281